=== PATIENT | female | born 1975 ===

== ENCOUNTER 2021-01-13 06:26 | Day surgery (SDC) | payer OTHER ==
[2021-01-13] MEDS ORDERED: PERCOCET 5-3251 EACH PO (10:07)
== END 2021-01-13 11:05 | disposition home or self-care (01) ==
LOC: CIR.AMB 06:26
PROVIDERS: ATTEND Obstetrics & Gynecology Gynecology
DX: Z30.2 Encounter for sterilization (principal); Z20.822 Contact with and (suspected) exposure to COVID-19